=== PATIENT | female | born 1975 | race Asian ===

== ENCOUNTER 2017-07-16 17:20 | Emergency (ER) | payer OTHER ==
[~2017-07-16] VITALS: Ht 154.9 cm; Wt 51.8 kg
[~2017-07-16 17:20] MED LIST: FERR1TAB23 PO; PRENTAB26 PO
[2017-07-16 17:22] VITALS: BP 150/88; PULSE 89; TEMP 36.9; O2SAT 99; Ht 154.9 cm; Wt 51.8 kg
[2017-07-16] MEDS ORDERED: BCPILLS PO (18:05)
--- NOTE | 2017-07-16 22:37 | EMERGENCY ROOM VISIT NOTE ---
History First contact with patient: 17:28 Chief Complaint: OTHER COMPLAINT Stated Complaint: GOT SPLASHED IN EYE DURING SURGERY- History of Present Illness The patient is a 41 year old female who presents to the Emergency Room with complaints of blood exposure to her left eye. The patient is employed here at the facility and was assisting in a surgical procedure in the operating room. She states that as they were closing the surgical wound, and when this occurred a large amount of serous/bloody fluid splashed around her visor into her left eye. The patient was able to immediately cleansed and washed the area. She now presents to the ER for evaluation. The patient does have the contact V number of the source patient. The patient is up-to-date on her tetanus. She does not have other complaints. Review of Systems More than 10 systems were reviewed and otherwise negative with the exception of history of present illness. Past Medical/Surgical History No chronic medical disease Family History No pertinent family history Social History Smoking Status: Never Smoker Occupation Status: employed Current/Historical Medications Scheduled Control Pills ( Control Pills), 1 TAB PO DAILY Physical Exam Vital Signs Date Time Temp Pulse Resp B/P (MAP) Pulse Ox O2 Delivery O2 Flow Rate FiO2 07/16/17 17:22 36.9 89 20 150/88 99 Room Air Physical Exam VITALS: Vitals are noted on the nurse's note and reviewed by myself. Vital signs stable. GENERAL: Well-developed, well-nourished, female, who is in no acute distress and resting comfortably. Patient is cooperative with the examination. EYES: Pupils equal round and reactive to light and accommodation. Conjunctivae without injection, sclerae without icterus. Extraocular movements intact. Medical Decision & Procedures ED Course Physical exam and history were performed. Nursing notes, EMR, and Medication List were personally reviewed. Patient appears to have suffered a blood/body fluid exposure to her left eye. This is considered a meaningful exposure. The patient does consent to hepatitis and HIV testing. Appropriate consents and paperwork were completed. Blood work was drawn. The patient did have the identification of the source patient, and this was demarcated on the consents. The patient does not wish for HIV postexposure prophylaxis. The attending physician of the patient is Dr Leslie, who is also aware of the exposure. I did leave private secure message with [facility] who will follow-up on results. I did answer all the patient's questions, and she was comfortable with discharge home. The chart was completed utilizing [employer] Voice Recognition Software. Grammatical errors, random word insertions, pronoun errors, and incomplete sentences are an occasional consequence of this system due to software limitations, ambient noise, and hardware issues. Any formal questions or concerns about the content, text, or information contained within the body of this dictation should be directly addressed to the provider for clarification. . Medical Decision Differential diagnosis includes, but is not limited to: Blood exposure, infectious disease exposure, and others Impression Primary Impression: Exposure to blood or body fluid Departure Information Dispostion Home / Self-Care Condition GOOD Referrals Kena Gaspar HOME CARE DOCUMENTATION FORM, IMPORTANT VISIT INFORMATION Patient Instructions My [facility] Additional Instructions You were seen and evaluated today on an emergency basis only. This is not a substitute for, or an effort to provide, complete comprehensive medical care. It is not possible to recognize and treat all injuries or illnesses in a single emergency department visit. For this reason it is recommended that you followup with [facility], Kena Gaspar's office, for results and ongoing care. You are welcome to return to the emergency department anytime with new, worsening, or concerning symptoms.
== END 2017-07-16 18:20 | disposition home or self-care (01) ==
LOC: C.EDB 17:21 → C.EDD 18:20
DX: Z77.21 Contact with and (suspected) exposure to potentially hazardous body fluids (principal); X58.XXXA Exposure to other specified factors, initial encounter; Y93.89 Activity, other specified; Y92.234 Operating room of hospital as the place of occurrence of the external cause; Y99.0 Civilian activity done for income or pay

== ENCOUNTER → 2018-05-13 | Outpatient (CLI) | payer OTHER ==
[~2018-05-13] MED LIST changes: +BCPILLS PO; -FERR1TAB23 PO; -PRENTAB26 PO
== END | disposition home or self-care (01) ==
LOC: C.PAPS 11:33
PROVIDERS: ATTEND Obstetrics & Gynecology
DX: Z01.419 Encounter for gynecological examination (general) (routine) without abnormal findings (principal)